=== PATIENT | male | born 1940 | race Caucasian/White ===

== ENCOUNTER 2017-10-21 00:45 | Emergency (ER) | payer MEDICARE ==
[~2017-10-21] VITALS: Ht 177.8 cm; Wt 110.7 kg
[~2017-10-21 00:45] MED LIST: ACET325 PO; ALBU90OI INH; ALLO300 PO; AMLO10 PO; ASCO500 PO; ASPI81CH PO; ATEN100 PO; BENZ100A PO; CALCAVITDA PO; CHOL10002 PO; CODGUAEL PO; CYAN1000 PO; DEMEROL; DOCU100 PO; ERGO400 PO; FLUSAL2505 INH; FLUT110OIA INH; GLIP10 PO; INSUASPI SC; Kristalose20 GM PO; LACT10SY PO; LEVEMIR FL100 UNIT/1 SC; LEVFLO500 PO; LISI20 PO; LORA10 PO; LOSA50 PO; METF500 PO; METO50 PO; MULVITMIND PO; PANT40 PO; PROM25; PSEU120ER PO; Prednisone20 MG PO; ROSU10TA PO; Senna8.6 MG PO; Tessalon Perle100 MG PO; Zofran4 MG PO
[2017-10-21] MEDS ORDERED: Artificial Tear15 M4 (01:29)
[2017-10-21] MEDS ORDERED: Arthritis Pai42.5 GM TOP (01:30)
[2017-10-21] MEDS ORDERED: BUDE6HFA INH (01:35)
[2017-10-21] MEDS ORDERED: Thera Tears1 EAC1 BOTHEYES (01:36)
[2017-10-21] MEDS ORDERED: KETO15TC TOP (01:39)
[2017-10-21] MEDS ORDERED: NYSTATIN1 EAC1 TOP (01:41)
[2017-10-21 02:33] LABS: BASOPHILS ABSOLUTE AUTO 0.05 K/mm3 (0.00-0.23); BASOPHILS PERCENT AUTO 1 % (0-2); EOSINOPHILS ABSOLUTE AUTO 0.36 K/mm3 (0.00-0.68); EOSINOPHILS PERCENT AUTO 3 % (0-6); Hemoglobin 13.2 g/dL (13.5-17.5); IMMATURE GRAN ABSOLUTE AUTO 0.03 K/mm3 (0.00-0.10); IMMATURE GRAN PERCENT AUTO 0 % (0-1); LYMPHOCYTES ABSOLUTE AUTO 1.85 K/mm3 (0.84-5.20); LYMPHOCYTES PERCENT AUTO 18 % (21-46); MONOCYTES ABSOLUTE AUTO 0.64 K/mm3 (0.16-1.47); MONOCYTES PERCENT AUTO 6 % (4-13); Mean Corpuscular HGB 30.3 pg (26.0-34.0); Mean Corpuscular Volume 92 fL (80-100); Mean Platelet Volume 10.8 fL (9.1-12.4); NEUTROPHILS ABSOLUTE AUTO 7.63 K/mm3 (1.96-9.15); NEUTROPHILS PERCENT AUTO 72 % (41-73); Platelet Count 184 K/mm3 (150-400); RDW Coefficient Variation 14.4 % (11.7-14.2); RDW Standard Deviation 48.3 fL (35.1-46.3); Red Blood Cell Count 4.36 M/mm3 (4.30-5.90); White Blood Cell Count 10.56 K/mm3 (4.00-11.30)
[2017-10-21 02:46] LABS: International Normalized Ratio 1.01; Prothrombin Time Results 10.5 Sec (9.7-11.5)
[2017-10-21 02:56] LABS: Alanine Aminotransfer (ALT/SGP 24 U/L (12-78); Albumin, Blood 3.5 g/dL (3.4-5.0); Albumin/Globulin Ratio 0.9 (0.8-1.8); Alk Phos 109 U/L (50-136); Anion Gap 8 mmol/L (6-16); Aspartate Aminotrans (AST/SGOT 19 U/L (12-37); Bilirubin, Total 0.4 mg/dL (0.1-1.0); Blood Urea Nitrogen 18 mg/dL (8-24); Bun/Creatinine Ratio 10.7 (12.0-20.0); CO2, Blood 26 mmol/L (21-32); Calcium, Blood 8.9 mg/dL (8.5-10.1); Chloride, Blood 110 mmol/L (98-108); Creatinine, Blood 1.68 mg/dL (0.60-1.20); Glomerular Filtration Rate 42 (60-); Glucose, Blood 79 mg/dL (70-99); Potassium, Blood 4.2 mmol/L (3.5-5.5); Sodium, Blood 144 mmol/L (136-145); Total Protein, Blood 7.5 g/dL (6.4-8.2); Troponin I <0.015 ng/mL (0.000-0.040)
== END 2017-10-21 04:36 | disposition home or self-care (01) ==
LOC: ER 00:45
PROVIDERS: Emergency Medicine
DX: R07.9 Chest pain, unspecified (principal); E11.22 Type 2 diabetes mellitus with diabetic chronic kidney disease; I12.9 Hypertensive chronic kidney disease with stage 1 through stage 4 chronic kidney disease, or unspecified chronic kidney disease; N18.9 Chronic kidney disease, unspecified; I25.10 Atherosclerotic heart disease of native coronary artery without angina pectoris; E78.5 Hyperlipidemia, unspecified; Z95.1 Presence of aortocoronary bypass graft; Z90.89 Acquired absence of other organs; Z87.891 Personal history of nicotine dependence; Z88.2 Allergy status to sulfonamides; Z88.7 Allergy status to serum and vaccine; Z88.5 Allergy status to narcotic agent; Z88.0 Allergy status to penicillin; Z88.8 Allergy status to other drugs, medicaments and biological substances; Z79.899 Other long term (current) drug therapy; Z79.84 Long term (current) use of oral hypoglycemic drugs; Z79.82 Long term (current) use of aspirin
CPT/HCPCS: 36415; 71046; 80053; 83690; 84484; 85025; 85610; 85730; 93005; 93010; 99284

== ENCOUNTER 2018-09-28 17:23 | Emergency (ER) | payer MEDICARE ==
[~2018-09-28] VITALS: Ht 177.8 cm; Wt 95.2 kg
[~2018-09-28 17:23] MED LIST changes: +Arthritis Pai42.5 GM TOP; +Artificial Tear15 M4; +BUDE6HFA INH; +KETO15TC TOP; +NYSTATIN1 EAC1 TOP; +Thera Tears1 EAC1 BOTHEYES
[2018-09-28] MEDS ORDERED: CEFP200 PO (18:57)
== END 2018-09-28 19:04 | disposition home or self-care (01) ==
LOC: ER 17:23
DX: J32.9 Chronic sinusitis, unspecified (principal); E11.22 Type 2 diabetes mellitus with diabetic chronic kidney disease; I12.9 Hypertensive chronic kidney disease with stage 1 through stage 4 chronic kidney disease, or unspecified chronic kidney disease; N18.9 Chronic kidney disease, unspecified; I25.10 Atherosclerotic heart disease of native coronary artery without angina pectoris; E78.5 Hyperlipidemia, unspecified; Z88.8 Allergy status to other drugs, medicaments and biological substances; Z88.0 Allergy status to penicillin; Z88.7 Allergy status to serum and vaccine; Z88.2 Allergy status to sulfonamides; Z88.5 Allergy status to narcotic agent; Z88.1 Allergy status to other antibiotic agents; Z79.899 Other long term (current) drug therapy; Z79.84 Long term (current) use of oral hypoglycemic drugs; Z79.82 Long term (current) use of aspirin; Z87.891 Personal history of nicotine dependence
CPT/HCPCS: 71046; 99283-25

== ENCOUNTER 2018-09-30 15:13 | Emergency (ER) | payer MEDICARE ==
[~2018-09-30] VITALS: Ht 175.3 cm; Wt 108.9 kg
[~2018-09-30 15:13] MED LIST changes: +CEFP200 PO
[2018-09-30 16:17] LABS: Albumin, Blood 3.3 g/dL (3.4-5.0); Albumin/Globulin Ratio 0.8 (0.8-1.8); Bilirubin, Total 0.5 mg/dL (0.1-1.0); Bun/Creatinine Ratio 11.9 (12.0-20.0); Calcium, Blood 8.1 mg/dL (8.5-10.1); Creatinine, Blood 2.1 mg/dL (0.60-1.20); Globulin, Blood 4.3 g/dL (2.2-4.0); Potassium, Blood 4.8 mmol/L (3.5-5.5); Total Protein, Blood 7.6 g/dL (6.4-8.2)
[2018-09-30 16:22] LABS: BASOPHILS ABSOLUTE AUTO 0.02 K/mm3 (0.00-0.23); BASOPHILS PERCENT AUTO 0 % (0-2); EOSINOPHILS ABSOLUTE AUTO 0.23 K/mm3 (0.00-0.68); EOSINOPHILS PERCENT AUTO 3 % (0-6); Hematocrit 43.8 % (37.0-53.0); Hemoglobin 13.8 g/dL (13.5-17.5); IMMATURE GRAN ABSOLUTE AUTO 0.02 K/mm3 (0.00-0.10); IMMATURE GRAN PERCENT AUTO 0 % (0-1); LYMPHOCYTES ABSOLUTE AUTO 0.79 K/mm3 (0.84-5.20); LYMPHOCYTES PERCENT AUTO 10 % (21-46); MONOCYTES ABSOLUTE AUTO 0.48 K/mm3 (0.16-1.47); MONOCYTES PERCENT AUTO 6 % (4-13); Mean Corpuscular HGB 29.2 pg (26.0-34.0); Mean Corpuscular HGB Conc 31.5 g/dL (31.5-36.5); Mean Corpuscular Volume 93 fL (80-100); NEUTROPHILS ABSOLUTE AUTO 6.68 K/mm3 (1.96-9.15); NEUTROPHILS PERCENT AUTO 81 % (41-73); RDW Coefficient Variation 15.8 % (11.7-14.2); RDW Standard Deviation 53.3 fL (35.1-46.3); Red Blood Cell Count 4.72 M/mm3 (4.30-5.90); White Blood Cell Count 8.22 K/mm3 (4.00-11.30)
[2018-09-30 16:48] LABS: Mean Platelet Volume 11.9 fL (9.1-12.4); Platelet Count 167 K/mm3 (150-400)
== END 2018-09-30 19:35 | disposition home or self-care (01) ==
LOC: ER 15:13
PROVIDERS: Physician Assistant
DX: R11.2 Nausea with vomiting, unspecified (principal); R19.7 Diarrhea, unspecified; T36.1X5A Adverse effect of cephalosporins and other beta-lactam antibiotics, initial encounter; I12.9 Hypertensive chronic kidney disease with stage 1 through stage 4 chronic kidney disease, or unspecified chronic kidney disease; E11.22 Type 2 diabetes mellitus with diabetic chronic kidney disease; N18.9 Chronic kidney disease, unspecified; I25.10 Atherosclerotic heart disease of native coronary artery without angina pectoris; E78.5 Hyperlipidemia, unspecified; Z88.0 Allergy status to penicillin; Z88.2 Allergy status to sulfonamides; Z88.1 Allergy status to other antibiotic agents; Z88.5 Allergy status to narcotic agent; Z88.8 Allergy status to other drugs, medicaments and biological substances; Z79.899 Other long term (current) drug therapy; Z79.82 Long term (current) use of aspirin; Z98.890 Other specified postprocedural states; Z90.49 Acquired absence of other specified parts of digestive tract; Z95.1 Presence of aortocoronary bypass graft; Z87.891 Personal history of nicotine dependence
CPT/HCPCS: 36415; 80053; 85025; 99283

== ENCOUNTER 2019-01-10 18:00 | Emergency (ER) | payer MEDICARE ==
[~2019-01-10] VITALS: Ht 177.8 cm; Wt 107.5 kg
[2019-01-10] MEDS ORDERED: CLOP75 PO (18:31)
[2019-01-10] MEDS ORDERED: ONDA4ODT MM (20:44)
== END 2019-01-10 21:10 | disposition home or self-care (01) ==
LOC: ER 18:00
DX: R10.31 Right lower quadrant pain (principal); R10.32 Left lower quadrant pain; R11.2 Nausea with vomiting, unspecified; Z88.0 Allergy status to penicillin; Z88.7 Allergy status to serum and vaccine; Z88.2 Allergy status to sulfonamides; Z88.5 Allergy status to narcotic agent; Z88.1 Allergy status to other antibiotic agents; Z88.8 Allergy status to other drugs, medicaments and biological substances; Z79.899 Other long term (current) drug therapy; I12.9 Hypertensive chronic kidney disease with stage 1 through stage 4 chronic kidney disease, or unspecified chronic kidney disease; E11.22 Type 2 diabetes mellitus with diabetic chronic kidney disease; N18.9 Chronic kidney disease, unspecified; E78.5 Hyperlipidemia, unspecified; Z87.891 Personal history of nicotine dependence
CPT/HCPCS: 74176; 99284-25

== ENCOUNTER 2019-01-23 09:12 | Day surgery (SDC) | payer OTHER ==
[~2019-01-23] VITALS: Ht 177.8 cm; Wt 108.1 kg
[~2019-01-23 09:12] MED LIST changes: +ALBU90OI; +CLOP75 PO; +INSDET100; +ONDA4ODT MM
--- NOTE | 2019-01-23 11:13 | NUR ---
01/23/19 1113 Miryam Morrow PT ASSISTED TO RESTROOM 1105
--- NOTE | 2019-01-23 11:14 | NUR ---
01/23/19 1114 Miryam Morrow 02 10L VIA POM MASK
--- NOTE | 2019-01-23 15:17 | NUR ---
01/23/19 1517 Miryam Morrow PT DID NOT C/O BACK PAIN IN PREOP HOWEVER STATES HE HAS HAD TO DEAL WITH CHRONIC BACK PAIN IN THE FUTER. PT C/O 07/18 BACK PAIN. FLACC SCALE 5. PT SBA TO SDU UNTIL VTS ARRIVED.
== END 2019-01-23 12:15 | disposition home or self-care (01) ==
LOC: ORSCSDS 09:12
PROVIDERS: Internal Medicine Gastroenterology
PROC: 0DB68ZX Excision of Stomach, Via Natural or Artificial Opening Endoscopic, Diagnostic (ICD-10-PCS; principal; 2019-01-23 11:00)
PROC: 0DBP8ZX Excision of Rectum, Via Natural or Artificial Opening Endoscopic, Diagnostic (ICD-10-PCS; principal; 2019-01-23 11:00)
PROC: 0DBM8ZX Excision of Descending Colon, Via Natural or Artificial Opening Endoscopic, Diagnostic (ICD-10-PCS; principal; 2019-01-23 11:00)
PROC: 0DBK8ZX Excision of Ascending Colon, Via Natural or Artificial Opening Endoscopic, Diagnostic (ICD-10-PCS; principal; 2019-01-23 11:00)
DX: R10.9 Unspecified abdominal pain (principal); R11.2 Nausea with vomiting, unspecified; D12.4 Benign neoplasm of descending colon; D12.2 Benign neoplasm of ascending colon; K62.1 Rectal polyp; K57.30 Diverticulosis of large intestine without perforation or abscess without bleeding; K64.1 Second degree hemorrhoids; E11.22 Type 2 diabetes mellitus with diabetic chronic kidney disease; I12.9 Hypertensive chronic kidney disease with stage 1 through stage 4 chronic kidney disease, or unspecified chronic kidney disease; N18.9 Chronic kidney disease, unspecified; B19.20 Unspecified viral hepatitis C without hepatic coma; J44.9 Chronic obstructive pulmonary disease, unspecified; Z87.891 Personal history of nicotine dependence; E66.9 Obesity, unspecified; Z68.34 Body mass index [BMI] 34.0-34.9, adult; Z79.899 Other long term (current) drug therapy
CPT/HCPCS: 82947; J2250; J2704; J7120

== ENCOUNTER 2019-05-20 10:54 | Inpatient (IN) | payer MEDICARE ==
[~2019-05-20] VITALS: Ht 177.8 cm; Wt 101.6 kg
[~2019-05-20 10:54] MED LIST changes: -ALBU90OI; -ALLO300 PO; -ASCO500 PO; -CHOL10002 PO; -CLOP75 PO; -DOCU100 PO; -GLIP10 PO; -INSDET100; -LACT10SY PO; -LOSA50 PO; -METO50 PO; -MULVITMIND PO
[2019-05-20 13:01] LABS: BASOPHILS ABSOLUTE AUTO 0.05 K/mm3 (0.00-0.23); BASOPHILS PERCENT AUTO 1 % (0-2); EOSINOPHILS ABSOLUTE AUTO 0.12 K/mm3 (0.00-0.68); EOSINOPHILS PERCENT AUTO 2 % (0-6); Hemoglobin 14.1 g/dL (13.5-17.5); IMMATURE GRAN ABSOLUTE AUTO 0.05 K/mm3 (0.00-0.10); IMMATURE GRAN PERCENT AUTO 1 % (0-1); LYMPHOCYTES PERCENT AUTO 17 % (21-46); MONOCYTES ABSOLUTE AUTO 0.44 K/mm3 (0.16-1.47); MONOCYTES PERCENT AUTO 7 % (4-13); Mean Corpuscular HGB 31.1 pg (26.0-34.0); Mean Corpuscular HGB Conc 32.8 g/dL (31.5-36.5); Mean Corpuscular Volume 95 fL (80-100); Mean Platelet Volume 11.2 fL (9.1-12.4); NEUTROPHILS ABSOLUTE AUTO 4.58 K/mm3 (1.96-9.15); NEUTROPHILS PERCENT AUTO 72 % (41-73); Platelet Count 147 K/mm3 (150-400); RDW Standard Deviation 51.9 fL (35.1-46.3); Red Blood Cell Count 4.53 M/mm3 (4.30-5.90); White Blood Cell Count 6.34 K/mm3 (4.00-11.30)
[2019-05-20 13:16] LABS: Alanine Aminotransfer (ALT/SGP 24 U/L (12-78); Albumin, Blood 3.6 g/dL (3.4-5.0); Albumin/Globulin Ratio 0.9 (0.8-1.8); Alk Phos 129 U/L (50-136); Anion Gap 8 mmol/L (6-16); Aspartate Aminotrans (AST/SGOT 15 U/L (12-37); Bilirubin, Total 0.3 mg/dL (0.1-1.0); Blood Urea Nitrogen 20 mg/dL (8-24); Bun/Creatinine Ratio 11.9 (12.0-20.0); CO2, Blood 23 mmol/L (21-32); Calcium, Blood 8.4 mg/dL (8.5-10.1); Chloride, Blood 113 mmol/L (98-108); Creatinine, Blood 1.68 mg/dL (0.60-1.20); Globulin, Blood 4.1 g/dL (2.2-4.0); Glomerular Filtration Rate 42 (60-); Glucose, Blood 149 mg/dL (70-99); Magnesium, Blood 2.2 mg/dL (1.6-2.4); Potassium, Blood 3.7 mmol/L (3.5-5.5); Sodium, Blood 144 mmol/L (136-145); Total Protein, Blood 7.7 g/dL (6.4-8.2); Troponin I <0.015 ng/mL (0.000-0.040)
[2019-05-20] MEDS ORDERED: CLOP75 PO (14:03)
[2019-05-20] MEDS ORDERED: ALLO300 PO (14:03)
[2019-05-20] MEDS ORDERED: GEMF600 PO (14:04)
[2019-05-20] MEDS ORDERED: GLIP5 PO (14:05)
[2019-05-20] MEDS ORDERED: LACT10SY PO (14:06)
[2019-05-20] MEDS ORDERED: INSDET100 SC (14:07)
[2019-05-20] MEDS ORDERED: DAILY VALUE1 EACH PO (14:09)
[2019-05-20] MEDS ORDERED: LOSARTAN POTAS100 MG PO (14:09)
[2019-05-20] MEDS ORDERED: METO50 PO (14:10)
[2019-05-20] MEDS ORDERED: PANT40 PO (14:11)
[2019-05-20] MEDS ORDERED: ALBU90OI INH (14:13)
[2019-05-20] MEDS ORDERED: ASCO500 PO (15:56)
[2019-05-20] MEDS ORDERED: DOCU100 PO (15:56)
[2019-05-20] MEDS ORDERED: CHOL10002 PO (15:56)
[2019-05-20] MEDS ORDERED: ALBU2.5V5 NEB (15:58)
--- NOTE | 2019-05-20 18:27 | NUR ---
SUMMARY PT ADMITTED FROM THE ER FOR CHEST PAIN, PT IS ALERT AND ORIENTED, PT IS ABLE TO AMBULATE FROM THE GURNEY TO THE BED, PT CURRENTLY DENIES ANY CHEST PAIN, ORIENTED PT TO ROOM AND CALL SYSTEM, WILL CONT TO MONITOR
--- NOTE | 2019-05-20 21:23 | NUR ---
PT TOOK OWN MEDS WHEN THIS RN CAME INTO PT'S ROOM TO GIVE NIGHT MEDS PT REPORTED THAT HE HAD JUST TAKEN HIS MEDS FROM HOME. PT REPORTED THAT HE TOOK METOPROLOL, LOPID, AND LOSARTAN. EDUCATED PT ON NOT TAKING HOME MEDS ANYMORE AND TO ALLOW US TO GIVE AND RECORD MEDICATIONS. PT AGREED ALTHOUGH WAS NOT VERY HAPPY ABOUT IT.
--- NOTE | 2019-05-21 04:37 | NUR ---
[facility] TENDER SUMMARY PT AAOX4 AND INDEPENDENT IN ROOM. NO CP REPORTED BY PT TONIGHT AND REPEAT TROPONINS HAVE BEEN NEGATIVE. NO ACUTE CHANGES ON TELEMETRY. MENTIONED IN PREVIOUS NOTE, PT TOOK MEDS HE BROUGHT FROM HOME. PT INSTRUCTED TO NOT TAKE HOME MEDS UNLESS THEY ARE VERIFIED BY PHARMACY. PT NPO SINCE [phone] IN PREP FOR STRESS TEST LATER TODAY. PT EAGER TO GET TEST DONE EARLY SO THAT HE CAN BE DC'D HOME. VSS, WILL CONTINUE TO MONITOR.
[2019-05-21 08:23] LABS: BASOPHILS ABSOLUTE AUTO 0.06 K/mm3 (0.00-0.23); BASOPHILS PERCENT AUTO 1 % (0-2); EOSINOPHILS ABSOLUTE AUTO 0.21 K/mm3 (0.00-0.68); EOSINOPHILS PERCENT AUTO 3 % (0-6); Hematocrit 40.5 % (37.0-53.0); Hemoglobin 13.2 g/dL (13.5-17.5); IMMATURE GRAN ABSOLUTE AUTO 0.03 K/mm3 (0.00-0.10); IMMATURE GRAN PERCENT AUTO 1 % (0-1); LYMPHOCYTES ABSOLUTE AUTO 1.32 K/mm3 (0.84-5.20); LYMPHOCYTES PERCENT AUTO 20 % (21-46); MONOCYTES ABSOLUTE AUTO 0.56 K/mm3 (0.16-1.47); MONOCYTES PERCENT AUTO 8 % (4-13); Mean Corpuscular HGB 30.8 pg (26.0-34.0); Mean Corpuscular HGB Conc 32.6 g/dL (31.5-36.5); Mean Corpuscular Volume 94 fL (80-100); Mean Platelet Volume 10.9 fL (9.1-12.4); NEUTROPHILS ABSOLUTE AUTO 4.45 K/mm3 (1.96-9.15); NEUTROPHILS PERCENT AUTO 67 % (41-73); Platelet Count 151 K/mm3 (150-400); RDW Coefficient Variation 14.9 % (11.7-14.2); RDW Standard Deviation 51.1 fL (35.1-46.3); Red Blood Cell Count 4.29 M/mm3 (4.30-5.90); White Blood Cell Count 6.63 K/mm3 (4.00-11.30)
[2019-05-21 09:21] LABS: Bun/Creatinine Ratio 11.3 (12.0-20.0); Creatinine, Blood 1.59 mg/dL (0.60-1.20); Potassium, Blood 3.5 mmol/L (3.5-5.5)
--- NOTE | 2019-05-21 18:40 | NUR ---
SHIFT SUMMARY PATIENT WAS NPO AFTER BREAKFAST AND WAS ABLE TO COMPLETE THE STRESS TEST AND IMAGING THIS AFTERNOON. JUST THE SECOND PART WAS DONE, CONFIRMED BY DR LAYNE. NO CHANGES ON TELE, NO COMPLAINTS OF CHEST PAIN OR SOB. PT IS INDEPENDENT IN ROOM, STATED HE HAD 2 LOOSER STOOLS THIS MORNING. PT TOOK HOSPITAL SUPPLIED MEDS AND DID NOT TAKE HIS HOME MEDS FAR I KNOW. BLOOD SUGARS TRENDED UP AND LANTUS WAS GIVEN WITH DINNER. VSS. PT IS IRRITABLE AT TIMES, WANTS TO GO HOME, HAS COMPLAINTS ABOUT THE FOOD BECAUSE HE STATES HE HAS A STRICT DIET. AT 1630 HE CRIED FOR SEVERAL MINUTES, WAS CONSOLED AND GIVEN JUICE/SNACKS.
--- NOTE | 2019-05-22 04:46 | NUR ---
SHIFT SUMARY NO ACUTE CHANGES TO REPORT OVERNIGHT. PT HAS RESTED MOST OF THE SHIFT. HE DENIES CP, VITALS ARE STABLE. HE HAS BEEN INDEPENDENT IN THE ROOM. OCCASIONAL SOB WITH EXERTION. PT REPORTS PAIN IN HIS RIGHT HAND THAT HE STATES "CARPEL TUNNEL". PT HAS HAD BOTH PARTS OF STRESS TEST DONE. PLAN IS FOR DC TODAY ONCE TRANSPORTATION IS ARRANGED. WILL CONTINUE TO MONITOR AND REPORT TO ONCOMING RN.
--- NOTE | 2019-05-22 10:57 | NUR ---
LANTUS CLARIFICATION [facility] CALLED TO VERIFY CORRECT DOSE FOR LANTUS. PT STATED HE TOOK 15 UNITS TID. [facility] CONFIRMED THIS ORDER. THIS RN SPOKE WITH [facility] NURSE, MARCELL, WHO WAS CONFUSED ABOUT ORDER. MARCELL STATED SHE WOUND LET THE PTS PRIMARY KNOW ABOUT THE ORDER FOR FURTHER CLARIFICATION. DR. LAYNE NOTIFIED OF INFORMATION GATHERED & CHANGED LANTUS ORDER TO DAILY. WILL CONTINUE TO MONITOR.
--- NOTE | 2019-05-22 12:21 | NUR ---
PT TAKEN TO PASSENGER SERVICE AGENT. PT TAKEN TO PASSENGER SERVICE AGENT. PT WILL BE TRANSFERED TO [facility]. BELONGINGS SENT TO [facility].
--- NOTE | 2019-05-22 12:48 | NUR ---
REPORT GIVEN TO OSVALDO Hui RN. NO FURTHER QUESTIONS.
--- NOTE | 2019-05-22 13:39 | NUR ---
The pt was brought from the [facility] and arrived at this time. Report recieved at bedside, right groin site noted with clean, dry intact dressing (tegederm CHG) without bleeding, bruising, swelling, evidence of hematoma, or firmness. Distal pulses are palpable, and the spo2 measured on the right foot is 99% and the pt is on room air. .The pt is able to carry on coversation and denies pain except for right groin soreness.
--- NOTE | 2019-05-22 16:33 | NUR ---
NURSING PCU DISCHARGE SUMMARY: Assumed care of pt at approx 1330. Arrived from via bed accompanied by staff. R groin site w/closure device, site stable w/no bleed or hematoma noted. Site recovered as per protocol w/no difficulties noted. HOB currently @ 45 degrees w/plans to dangle and ambulate pt at 1700. Pt expressed wishes to be discharged home after recovery. Spoke w/PMD, discharge home d/o received. Transportation arranged by respite care provider w/scheduled pickup time of 1800. Pt denies any questions regarding discharge plan and appears in good spirits. No s/s of acute distress at this time, cont to monitor until discharge is completed.
[2019-05-22] MEDS ORDERED: Pedi-Dri 100,0060 GM TOP (17:04)
== END 2019-05-22 18:56 | disposition home or self-care (01) | DRG 287 ==
LOC: ER 10:54 → MEDS 10:55 → ERHOLD 10:55 → MEDS 17:35 → PCU 05-22 12:13
PROVIDERS: Emergency Medicine; ADMIT Internal Medicine
PROC: 4A023N7 Measurement of Cardiac Sampling and Pressure, Left Heart, Percutaneous Approach (ICD-10-PCS; principal; 2019-05-22)
PROC: B210YZZ Fluoroscopy of Single Coronary Artery using Other Contrast (ICD-10-PCS; 2019-05-22)
DX: I25.10 Atherosclerotic heart disease of native coronary artery without angina pectoris (principal); I12.9 Hypertensive chronic kidney disease with stage 1 through stage 4 chronic kidney disease, or unspecified chronic kidney disease; N18.3 Chronic kidney disease, stage 3 (moderate); J44.9 Chronic obstructive pulmonary disease, unspecified; E11.22 Type 2 diabetes mellitus with diabetic chronic kidney disease; K21.9 Gastro-esophageal reflux disease without esophagitis; Z79.4 Long term (current) use of insulin; E78.5 Hyperlipidemia, unspecified; I25.2 Old myocardial infarction; Z87.891 Personal history of nicotine dependence
CPT/HCPCS: 36415; 71046; 80048; 80053; 82947; 83690; 83735; 83880; 84484; 85025; 93005; 93010; 93017; 93306; 93459; 94640; 94760; 99152; 99285-25; A9270; C1760; C1769; C1894; G0378; J0706; J1644; J1650; J2250; J2785; J3010; J7030; J7040; Q9967

== ENCOUNTER 2019-11-28 09:22 | Emergency (ER) | payer MEDICARE ==
[~2019-11-28] VITALS: Ht 170.2 cm; Wt 95.2 kg
[~2019-11-28 09:22] MED LIST changes: +ALBU2.5V5 NEB; +ALLO300 PO; +ASCO500 PO; +CHOL10002 PO; +CLOP75 PO; +DAILY VALUE1 EACH PO; +DOCU100 PO; +GEMF600 PO; +GLIP5 PO; +INSDET100 SC; +LACT10SY PO; +LOSARTAN POTAS100 MG PO; +METO50 PO; +Pedi-Dri 100,0060 GM TOP
[2019-11-28 10:10] LABS: BASOPHILS ABSOLUTE AUTO 0.08 K/mm3 (0.00-0.23); BASOPHILS PERCENT AUTO 1 % (0-2); EOSINOPHILS PERCENT AUTO 4 % (0-6); Hematocrit 42.5 % (37.0-53.0); Hemoglobin 13.8 g/dL (13.5-17.5); IMMATURE GRAN ABSOLUTE AUTO 0.03 K/mm3 (0.00-0.10); IMMATURE GRAN PERCENT AUTO 0 % (0-1); LYMPHOCYTES ABSOLUTE AUTO 1.32 K/mm3 (0.84-5.20); LYMPHOCYTES PERCENT AUTO 18 % (21-46); MONOCYTES ABSOLUTE AUTO 0.53 K/mm3 (0.16-1.47); MONOCYTES PERCENT AUTO 7 % (4-13); Mean Corpuscular HGB 31.9 pg (26.0-34.0); Mean Corpuscular HGB Conc 32.5 g/dL (31.5-36.5); Mean Corpuscular Volume 98 fL (80-100); Mean Platelet Volume 10.5 fL (9.1-12.4); NEUTROPHILS ABSOLUTE AUTO 5.05 K/mm3 (1.96-9.15); NEUTROPHILS PERCENT AUTO 69 % (41-73); Platelet Count 188 K/mm3 (150-400); RDW Coefficient Variation 14.4 % (11.7-14.2); RDW Standard Deviation 51.8 fL (35.1-46.3); Red Blood Cell Count 4.33 M/mm3 (4.30-5.90); White Blood Cell Count 7.31 K/mm3 (4.00-11.30)
[2019-11-28 10:23] LABS: Troponin I <0.015 ng/mL (0.000-0.040)
[2019-11-28 10:26] LABS: Alanine Aminotransfer (ALT/SGP 17 U/L (12-78); Albumin, Blood 3.3 g/dL (3.4-5.0); Albumin/Globulin Ratio 0.8 (0.8-1.8); Alk Phos 110 U/L (50-136); Anion Gap 8 mmol/L (6-16); Aspartate Aminotrans (AST/SGOT 20 U/L (12-37); Bilirubin, Total 0.5 mg/dL (0.1-1.0); Blood Urea Nitrogen 22 mg/dL (8-24); Bun/Creatinine Ratio 12.6 (12.0-20.0); CO2, Blood 20 mmol/L (21-32); Calcium, Blood 8.6 mg/dL (8.5-10.1); Chloride, Blood 115 mmol/L (98-108); Creatinine, Blood 1.75 mg/dL (0.60-1.20); Globulin, Blood 4.1 g/dL (2.2-4.0); Glomerular Filtration Rate 40 (60-); Glucose, Blood 122 mg/dL (70-99); Potassium, Blood 4.3 mmol/L (3.5-5.5); Sodium, Blood 143 mmol/L (136-145); Total Protein, Blood 7.4 g/dL (6.4-8.2)
== END 2019-11-28 15:05 | disposition home or self-care (01) ==
LOC: ER 09:22
PROVIDERS: Emergency Medicine
DX: R07.9 Chest pain, unspecified (principal); F32.9 Major depressive disorder, single episode, unspecified; I12.9 Hypertensive chronic kidney disease with stage 1 through stage 4 chronic kidney disease, or unspecified chronic kidney disease; N18.9 Chronic kidney disease, unspecified; E78.5 Hyperlipidemia, unspecified; E11.22 Type 2 diabetes mellitus with diabetic chronic kidney disease
CPT/HCPCS: 36415; 71046; 80053; 83690; 84443; 84484; 85025; 93005; 93010; 99285-25